=== PATIENT | male | born 1985 | race Caucasian/White ===

== ENCOUNTER 2017-03-26 00:30 | Emergency (ER) | payer SELFPAY ==
[2017-03-26 01:08] VITALS: BP 110/68
--- NOTE | 2017-03-26 01:17 | ER Document Report ---
ED Medical Screen (RME) - General Chief Complaint: Fall Stated Complaint: FALL,LEG PAIN Time Seen by Provider: 03/26/17 01:16 Notes: 31-year-old male, chief complaint of falling on steps, landed on his left hip and knee, denies back pain. States he brushed his head on the ground but does not have a headache and does not want his head evaluated. No blood thinners. Denies any other injuries tonight. TRAVEL OUTSIDE OF THE [place] IN LAST 30 DAYS: No - Related Data Allergies/Adverse Reactions: No Known Allergies Allergy (Verified 03/26/17 01:06) Past Medical History - Social History Chew tobacco use (# tins/day): No Frequency of alcohol use: None Drug Abuse: None Pulmonary Medical History: Reports: Hx Asthma Renal/ Medical History: Denies: Hx Peritoneal Dialysis Psychiatric Medical History: Reports: Hx Depression Past Surgical History: Reports: Hx Abdominal Surgery - 01/2017 Physical Exam - Vital signs Vitals: Temp Pulse Resp BP Pulse Ox 98.0 F 87 16 110/68 96 03/26/17 01:06 03/26/17 01:06 03/26/17 01:06 03/26/17 01:06 03/26/17 01:06 - Back Back: Tender - Tender in the left lower buttock area, no midline tenderness, no saddle anesthesia Course - Vital Signs Vital signs: Temp Pulse Resp BP Pulse Ox 98.0 F 87 16 110/68 96 03/26/17 01:06 03/26/17 01:06 03/26/17 01:06 03/26/17 01:06 03/26/17 01:06
--- NOTE | 2017-03-26 02:12 | RADIOLOGY REPORT (SQ) ---
EXAM DESCRIPTION: KNEE LEFT 4 VIEW CLINICAL HISTORY: fall, pain COMPARISON: None. FINDINGS: 4 views of the left knee. No acute fracture or dislocation. Normal osseous mineralization. No definite joint effusion. IMPRESSION: No acute fracture or dislocation.
--- NOTE | 2017-03-26 02:13 | RADIOLOGY REPORT (SQ) ---
EXAM DESCRIPTION: HIP LEFT AP/LATERAL CLINICAL HISTORY: fall, pain COMPARISON: None. FINDINGS: Single view of the pelvis and 2 views of the left hip. No acute fracture or dislocation. The joint spaces preserved. No abnormalities of the pelvic bones or sacrum. Normal osseous mineralization. IMPRESSION: No acute fracture or dislocation.
[2017-03-26] MEDS ORDERED: OXYCODONE-ACETAMINOPHEN 5-325 MG TABLET PO ONE (02:47)
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
== END 2017-03-26 03:09 | disposition home or self-care (01) ==
LOC: ER 00:30
DX: M25.552 Pain in left hip (principal); M25.562 Pain in left knee; W10.9XXA Fall (on) (from) unspecified stairs and steps, initial encounter; F17.200 Nicotine dependence, unspecified, uncomplicated; J45.909 Unspecified asthma, uncomplicated
CPT/HCPCS: 99283